=== PATIENT | female | born 1945 | race Caucasian/White ===

== ENCOUNTER 2020-02-28 16:50 | Emergency (ER) | payer OTHER ==
[~2020-02-28] VITALS: Ht 165.1 cm; Wt 54.4 kg
[2020-02-28] MEDS ORDERED: LOSARTAN POTASS50 MG (16:59)
== END 2020-02-28 21:48 | disposition home or self-care (01) ==
LOC: ER 16:50
DX: L02.818 Cutaneous abscess of other sites (principal); B96.89 Other specified bacterial agents as the cause of diseases classified elsewhere

== ENCOUNTER → 2020-09-20 | Outpatient (CLI) | payer OTHER ==
[~2020-09-20] MED LIST: LOSARTAN POTASS50 MG
== END | disposition home or self-care (01) ==
LOC: OFIC 805 09:00
PROVIDERS: ATTEND Otolaryngology
DX: H90.3 Sensorineural hearing loss, bilateral (principal); H61.23 Impacted cerumen, bilateral

== ENCOUNTER 2020-10-13 11:11 | Emergency (ER) | payer OTHER ==
[~2020-10-13] VITALS: Ht 165.1 cm; Wt 61.7 kg
[2020-10-13] MEDS ORDERED: MULTI VITAMIN1 EACH (12:11)
== END 2020-10-13 17:57 | disposition home or self-care (01) ==
LOC: ER 11:11
DX: K52.89 Other specified noninfective gastroenteritis and colitis (principal); R10.32 Left lower quadrant pain; R10.2 Pelvic and perineal pain; Z03.818 Encounter for observation for suspected exposure to other biological agents ruled out

== ENCOUNTER 2020-10-18 08:23 | Outpatient (CLI) | payer OTHER ==
[~2020-10-18 08:23] MED LIST changes: +MULTI VITAMIN1 EACH
== END 2020-10-18 10:22 | disposition home or self-care (01) ==
LOC: SONOGRAMA 08:23
PROVIDERS: ATTEND Otolaryngology
DX: R22.2 Localized swelling, mass and lump, trunk (principal); E04.2 Nontoxic multinodular goiter

== ENCOUNTER → 2020-10-22 | Outpatient (CLI) | payer OTHER | END | disposition home or self-care (01) | LOC: OFIC 805 12:30 | PROVIDERS: ATTEND Otolaryngology | DX: H90.41 Sensorineural hearing loss, unilateral, right ear, with unrestricted hearing on the contralateral side (principal); H61.23 Impacted cerumen, bilateral ==

== ENCOUNTER 2021-04-10 08:28 | Outpatient (CLI) | payer OTHER | END 2021-04-10 08:33 | disposition home or self-care (01) | LOC: SONOGRAMA 08:28 | PROVIDERS: ATTEND Surgery | DX: E04.2 Nontoxic multinodular goiter (principal) ==

== ENCOUNTER 2024-08-07 13:39 | Emergency (ER) | payer OTHER ==
[~2024-08-07] VITALS: Ht 165.1 cm; Wt 56.7 kg
[2024-08-07] MEDS ORDERED: PERCOGESIC 3251 EACH PO (19:39)
[2024-08-07] MEDS ORDERED: PERCOCET 5-3251 EACH PO (19:44)
== END 2024-08-07 20:34 | disposition home or self-care (01) ==
LOC: ER 13:41
DX: S70.01XA Contusion of right hip, initial encounter (principal); S80.01XA Contusion of right knee, initial encounter; S40.011A Contusion of right shoulder, initial encounter; W18.39XA Other fall on same level, initial encounter; Y93.89 Activity, other specified; Y92.89 Other specified places as the place of occurrence of the external cause; Y99.9 Unspecified external cause status; I10 Essential (primary) hypertension; Z88.8 Allergy status to other drugs, medicaments and biological substances; R07.81 Pleurodynia